=== PATIENT | female | born 1945 | race African-American/Black ===

== ENCOUNTER 2017-04-15 14:36 | Emergency (ER) | payer OTHER ==
[~2017-04-15] VITALS: Ht 162.6 cm; Wt 73.0 kg
[2017-04-15] MEDS ORDERED: LIDOCAINE HCL 1% 20ML VIAL (Pyxis) INJ INFIL ONE (15:15)
[2017-04-15] MEDS ORDERED: IBUPROFEN 600MG TABLET PO ONE (19:30)
[2017-04-15 20:13] VITALS: BP 121/97
== END 2017-04-15 20:16 | disposition home or self-care (01) ==
LOC: ER 14:45
DX: S66.822A Laceration of other specified muscles, fascia and tendons at wrist and hand level, left hand, initial encounter (principal); I10 Essential (primary) hypertension; Z88.6 Allergy status to analgesic agent; X99.1XXA Assault by knife, initial encounter; Y93.89 Activity, other specified; Y92.018 Other place in single-family (private) house as the place of occurrence of the external cause
CPT/HCPCS: 12002; 73130; 99284; J3490; X7700